=== PATIENT | male | born 1985 | race Caucasian/White ===

== ENCOUNTER 2022-08-16 08:18 | Outpatient (CLI) | payer OTHER | END 2022-08-16 08:19 | disposition home or self-care (01) | LOC: CSHCT 08:18 | PROVIDERS: ATTEND Otolaryngology Plastic Surgery within the Head & Neck | DX: H71.91 Unspecified cholesteatoma, right ear (principal); H74.8X3 Other specified disorders of middle ear and mastoid, bilateral; H83.8X1 Other specified diseases of right inner ear | CPT/HCPCS: 70482 ==